=== PATIENT | female | born 1985 | race Caucasian/White ===

== ENCOUNTER 2022-08-24 06:30 | Day surgery (SDC) | payer OTHER ==
[~2022-08-24 06:30] MED LIST: FEOSOL325 MG PO; PRENATAL MULTI1 EAC2; PROGESTERONE100 MG
== END 2022-08-24 11:35 | disposition home or self-care (01) ==
LOC: CIR.AMB 06:30 → EDSTATUS 09:00 → OB/GYN 09:00 → CIR.AMB 09:00
PROVIDERS: ATTEND Obstetrics & Gynecology
DX: C54.1 Malignant neoplasm of endometrium (principal); N93.8 Other specified abnormal uterine and vaginal bleeding; Z20.822 Contact with and (suspected) exposure to COVID-19

== ENCOUNTER 2022-09-22 09:26 | Outpatient (CLI) | payer OTHER | END 2022-09-22 09:40 | disposition home or self-care (01) | LOC: MRI 09:26 | PROVIDERS: ATTEND Obstetrics & Gynecology | DX: C54.1 Malignant neoplasm of endometrium (principal); R19.00 Intra-abdominal and pelvic swelling, mass and lump, unspecified site | CPT/HCPCS: 72196; 74182 ==

== ENCOUNTER 2024-06-17 14:03 | Outpatient (CLI) | payer OTHER | END 2024-06-17 14:14 | disposition home or self-care (01) | LOC: MAMO-SONO 14:03 | PROVIDERS: ATTEND Obstetrics & Gynecology | DX: N63.0 Unspecified lump in unspecified breast (principal); N64.4 Mastodynia; Z12.31 Encounter for screening mammogram for malignant neoplasm of breast; R92.2 Inconclusive mammogram ==